=== PATIENT | female | born 1945 | race Two or more races ===

== ENCOUNTER 2021-10-23 08:15 | Inpatient (IN) | payer OTHER ==
[~2021-10-23] VITALS: Ht 160 cm; Wt 74.4 kg
[2021-10-23] MEDS ORDERED: ENALAPRIL MALE2.5 MG PO (09:56)
[2021-10-23] MEDS ORDERED: GLUMETZA500 MG PO (09:56)
[2021-10-23] MEDS ORDERED: PRAVASTATIN SOD10 MG PO (09:57)
[2021-10-23] MEDS ORDERED: RESTORIL30 MG PO (09:59)
[2021-10-23] MEDS ORDERED: ARNUITY ELLIPT50 MCG IH (09:59)
[2021-10-23] MEDS ORDERED: PEXEVA10 MG PO (10:00)
[2021-10-26] MEDS ORDERED: CLONAZEPAM0.5 MG (16:25)
[2021-10-26] MEDS ORDERED: PAROXETINE HCL10 MG (16:25)
== END 2021-10-29 11:44 | disposition home or self-care (01) | DRG 734 ==
LOC: SURH 10-26 08:15 → O/R 10-26 11:20 → SURH 10-26 18:15
PROVIDERS: Surgery; ADMIT Obstetrics & Gynecology Gynecologic Oncology; ATTEND Obstetrics & Gynecology Gynecologic Oncology
PROC: 0UT70ZZ Resection of Bilateral Fallopian Tubes, Open Approach (ICD-10-PCS; 2021-10-26)
PROC: 0UT20ZZ Resection of Bilateral Ovaries, Open Approach (ICD-10-PCS; 2021-10-26)
PROC: 0WQF0ZZ Repair Abdominal Wall, Open Approach (ICD-10-PCS; 2021-10-26)
PROC: 0KXM0ZZ Transfer Perineum Muscle, Open Approach (ICD-10-PCS; 2021-10-26)
PROC: 07TC0ZZ Resection of Pelvis Lymphatic, Open Approach (ICD-10-PCS; principal; 2021-10-26 18:15)
PROC: 0UT90ZZ Resection of Uterus, Open Approach (ICD-10-PCS; 2021-10-26 18:15)
DX: C54.1 Malignant neoplasm of endometrium (principal); K43.6 Other and unspecified ventral hernia with obstruction, without gangrene; K42.0 Umbilical hernia with obstruction, without gangrene; K43.0 Incisional hernia with obstruction, without gangrene; Z20.822 Contact with and (suspected) exposure to COVID-19; D25.1 Intramural leiomyoma of uterus